=== PATIENT | male | born 1990 | race Caucasian/White ===

== ENCOUNTER 2023-01-03 14:04 | Emergency (ER) | payer OTHER ==
[~2023-01-03] VITALS: Ht 167.6 cm; Wt 68.0 kg
[2023-01-03] MEDS ORDERED: IBUP-1955 PO (15:21)
[2023-01-03] MEDS ORDERED: CEPH500C2 PO (15:21)
[2023-01-03] MEDS ORDERED: BACI/NEOM/POLY B OINT PKT 1 UDPKT PACKET ONE (15:25)
[2023-01-03] MEDS ORDERED: TDAP [DIPH/PERTUSSIS/TET] 0.5 ML VIAL IM ONE ×2 (15:25→15:30)
[2023-01-03] MEDS ORDERED: BACI/NEOM/POLY B OINT PKT 1 UDPKT PACKET TP ONE (15:30)
[2023-01-03 16:01] VITALS: BP 126/77; TEMP 98.4; O2SAT 99
== END 2023-01-03 16:01 | disposition home or self-care (01) ==
LOC: ER 14:04
DX: S61.301A Unspecified open wound of left index finger with damage to nail, initial encounter (principal); E11.9 Type 2 diabetes mellitus without complications; W26.8XXA Contact with other sharp object(s), not elsewhere classified, initial encounter; Y93.89 Activity, other specified; Y92.89 Other specified places as the place of occurrence of the external cause; Y99.8 Other external cause status
CPT/HCPCS: 99283; 90471; 90715; A6403